=== PATIENT | female | born 1980 | race Caucasian/White ===

== ENCOUNTER → 2016-05-16 | Outpatient (CLI) | payer OTHER ==
[~2016-05-16] MED LIST: MOTRIN 600600 MG/TAB PO; PRENATAL1 TA1 PO; SLOW FE45 MG PO
== END ==
LOC: BHSO 14:15
DX: F41.1 Generalized anxiety disorder (principal)

== ENCOUNTER → 2016-08-22 | Outpatient (CLI) | payer OTHER | LOC: BHSO 15:41 | DX: F33.1 Major depressive disorder, recurrent, moderate (principal) ==

== ENCOUNTER → 2016-10-17 | Outpatient (CLI) | payer OTHER | LOC: BHSO 11:44 | DX: F33.1 Major depressive disorder, recurrent, moderate (principal) ==

== ENCOUNTER → 2016-11-19 | Outpatient (CLI) | payer OTHER | LOC: BHSO 09:57 | DX: F41.1 Generalized anxiety disorder (principal) ==

== ENCOUNTER → 2016-12-13 | Outpatient (CLI) | payer OTHER | LOC: BHSO 08:55 | DX: F41.1 Generalized anxiety disorder (principal) ==

== ENCOUNTER → 2017-01-07 | Outpatient (CLI) | payer OTHER | LOC: BHSO 12:55 | DX: F41.1 Generalized anxiety disorder (principal) ==

== ENCOUNTER → 2017-01-13 | Outpatient (CLI) | payer OTHER | LOC: BHSO 12:52 | DX: F41.1 Generalized anxiety disorder (principal) ==

== ENCOUNTER → 2017-01-27 | Outpatient (CLI) | payer OTHER | LOC: BHSO 12:56 | DX: F41.1 Generalized anxiety disorder (principal) ==

== ENCOUNTER → 2017-02-20 | Outpatient (CLI) | payer OTHER | LOC: BHSO 08:55 | DX: F41.1 Generalized anxiety disorder (principal) ==

== ENCOUNTER → 2017-03-11 | Outpatient (CLI) | payer OTHER | LOC: BHSO 12:58 | DX: F33.1 Major depressive disorder, recurrent, moderate (principal) ==

== ENCOUNTER → 2017-04-14 | Outpatient (CLI) | payer OTHER | LOC: MHCPAIN 11:52 | DX: G89.29 Other chronic pain (principal); M47.817 Spondylosis without myelopathy or radiculopathy, lumbosacral region; M53.3 Sacrococcygeal disorders, not elsewhere classified | CPT/HCPCS: G0463 ==

== ENCOUNTER → 2017-05-21 | Outpatient (CLI) | payer OTHER | LOC: BHSO 10:56 | DX: F33.1 Major depressive disorder, recurrent, moderate (principal) ==

== ENCOUNTER 2017-05-28 08:15 | Outpatient (RCR) | payer OTHER | END 2017-07-24 | LOC: MKS.ESL.PT | DX: M47.817 Spondylosis without myelopathy or radiculopathy, lumbosacral region (principal); M53.3 Sacrococcygeal disorders, not elsewhere classified | CPT/HCPCS: G0283-GP ==

== ENCOUNTER → 2017-06-18 | Outpatient (CLI) | payer OTHER | LOC: BHSO 10:51 | DX: F40.10 Social phobia, unspecified (principal) ==

== ENCOUNTER → 2017-06-25 | Outpatient (CLI) | payer OTHER | LOC: BHSO 11:19 | DX: F31.81 Bipolar II disorder (principal) | CPT/HCPCS: G0463 ==

== ENCOUNTER → 2017-07-23 | Outpatient (CLI) | payer OTHER | LOC: BHSO 10:54 | DX: F41.1 Generalized anxiety disorder (principal) ==

== ENCOUNTER → 2017-08-06 | Outpatient (CLI) | payer OTHER | LOC: BHSO 10:18 | DX: F31.81 Bipolar II disorder (principal) | CPT/HCPCS: G0463 ==

== ENCOUNTER → 2017-08-08 | Outpatient (CLI) | payer OTHER | LOC: BHSO 11:12 | DX: F41.1 Generalized anxiety disorder (principal) ==

== ENCOUNTER → 2017-09-09 | Outpatient (CLI) | payer OTHER | LOC: BHSO 10:56 | DX: F41.1 Generalized anxiety disorder (principal) ==

== ENCOUNTER → 2017-09-19 | Outpatient (CLI) | payer OTHER | LOC: BHSO 11:34 | DX: F31.81 Bipolar II disorder (principal) | CPT/HCPCS: G0463 ==

== ENCOUNTER → 2017-09-23 | Outpatient (CLI) | payer OTHER | LOC: BHSO 12:57 | DX: F33.1 Major depressive disorder, recurrent, moderate (principal) ==

== ENCOUNTER → 2017-10-06 | Outpatient (CLI) | payer OTHER | LOC: BHSO 15:54 | DX: F33.1 Major depressive disorder, recurrent, moderate (principal) ==

== ENCOUNTER → 2017-10-24 | Outpatient (CLI) | payer OTHER | LOC: BHSO 12:58 | DX: F41.1 Generalized anxiety disorder (principal) ==

== ENCOUNTER → 2017-10-28 | Outpatient (CLI) | payer OTHER | LOC: BHSO 11:00 | DX: F41.1 Generalized anxiety disorder (principal) | CPT/HCPCS: G0463 ==

== ENCOUNTER → 2017-12-25 | Outpatient (CLI) | payer OTHER | LOC: BHSO 11:38 | DX: F31.81 Bipolar II disorder (principal) | CPT/HCPCS: G0463 ==

== ENCOUNTER → 2018-03-12 | Outpatient (CLI) | payer OTHER | LOC: BHSO 07:59 | DX: F31.81 Bipolar II disorder (principal) | CPT/HCPCS: G0463 ==

== ENCOUNTER → 2018-05-07 | Outpatient (CLI) | payer OTHER | LOC: BHSO 08:01 | DX: F33.1 Major depressive disorder, recurrent, moderate (principal) | CPT/HCPCS: G0463 ==

== ENCOUNTER → 2018-07-09 | Outpatient (CLI) | payer OTHER | LOC: BHSO 07:55 | DX: F41.1 Generalized anxiety disorder (principal) | CPT/HCPCS: G0463 ==

== ENCOUNTER → 2018-09-14 | Outpatient (CLI) | payer OTHER | LOC: BHSO 07:59 | DX: F33.1 Major depressive disorder, recurrent, moderate (principal) | CPT/HCPCS: G0463 ==

== ENCOUNTER → 2018-10-20 | Outpatient (CLI) | payer OTHER ==
[~2018-10-20] MED LIST changes: +OMEGA-3 1000 MG1 CAP PO; +[UNRECOGNIZED DRUG - OTHER] PO
== END ==
LOC: BHSO 11:16
DX: F41.0 Panic disorder [episodic paroxysmal anxiety] (principal)
CPT/HCPCS: G0463

== ENCOUNTER → 2018-11-18 | Outpatient (CLI) | payer OTHER | LOC: BHSO 11:29 | DX: F41.1 Generalized anxiety disorder (principal) | CPT/HCPCS: G0463 ==

== ENCOUNTER → 2019-01-18 | Outpatient (CLI) | payer OTHER | LOC: BHSO 13:06 | DX: F33.1 Major depressive disorder, recurrent, moderate (principal) ==

== ENCOUNTER → 2019-05-11 | Outpatient (CLI) | payer OTHER | LOC: COL.PUL 10:34 | DX: R06.02 Shortness of breath (principal) | CPT/HCPCS: J7674 ==

== ENCOUNTER → 2019-09-01 | Outpatient (CLI) | payer OTHER | LOC: COL.RAD 12:38 | DX: R59.0 Localized enlarged lymph nodes (principal) ==

== ENCOUNTER → 2019-11-15 | Outpatient (CLI) | payer OTHER | LOC: MC.RAD 14:55 | DX: Z12.31 Encounter for screening mammogram for malignant neoplasm of breast (principal) ==

== ENCOUNTER → 2020-03-14 | Outpatient (CLI) | payer OTHER | LOC: COL.RAD 03-02 08:15 | DX: H53.8 Other visual disturbances (principal); R41.89 Other symptoms and signs involving cognitive functions and awareness; R20.2 Paresthesia of skin ==

== ENCOUNTER → 2020-06-06 | Outpatient (CLI) | payer OTHER | LOC: COL.RAD 09:27 | DX: M47.812 Spondylosis without myelopathy or radiculopathy, cervical region (principal); M51.27 Other intervertebral disc displacement, lumbosacral region; M47.816 Spondylosis without myelopathy or radiculopathy, lumbar region ==

== ENCOUNTER 2020-09-06 08:15 | Outpatient (RCR) | payer OTHER | END 2020-11-01 | disposition home or self-care (01) | LOC: WSST | DX: R41.840 Attention and concentration deficit (principal); R41.3 Other amnesia ==

== ENCOUNTER → 2021-06-28 | Outpatient (CLI) | payer OTHER | LOC: MC.RAD 14:44 | DX: Z12.31 Encounter for screening mammogram for malignant neoplasm of breast (principal) ==

== ENCOUNTER → 2021-10-31 | Outpatient (CLI) | payer OTHER | LOC: MHCPAIN 11:31 | DX: M54.2 Cervicalgia (principal); M43.16 Spondylolisthesis, lumbar region; M50.30 Other cervical disc degeneration, unspecified cervical region; M54.59 Other low back pain | CPT/HCPCS: G0463 ==

== ENCOUNTER → 2021-12-27 | Outpatient (CLI) | payer OTHER | LOC: MHCPAIN 16:02 | DX: M54.2 Cervicalgia (principal); M50.30 Other cervical disc degeneration, unspecified cervical region; M54.50 Low back pain, unspecified; M43.16 Spondylolisthesis, lumbar region | CPT/HCPCS: G0463 ==

== ENCOUNTER → 2023-10-14 | Outpatient (CLI) | payer OTHER | LOC: MC.RAD 11:14 | DX: Z12.31 Encounter for screening mammogram for malignant neoplasm of breast (principal) ==